=== PATIENT | male | born 1970 | race Caucasian/White ===

== ENCOUNTER 2018-07-10 11:17 | Emergency (ER) | payer BC, OTHER ==
[2018-07-10] MEDS ORDERED: Ibuprofen TAB* 600 MG PO ONE (11:39)
--- NOTE | 2018-07-10 11:40 | ED ---
Back Pain - HPI Summary HPI Summary: The patient is a 48 y/o M presenting to [facility] with a chief complaint of constant bilateral low back pain starting today while at work. 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 Currently, the pain is rated 10/10 in severity. Movement aggravates the pain. He denies numbness in his back. He has had this pain before, and has had an MRI taken many years ago, but he only takes Ibuprofen intermittently for the pain. - History of Current Complaint Chief Complaint: EDBackInjuryPain Stated Complaint: LOWER BACK PAIN Time Seen by Provider: 07/10/18 11:32 Hx Obtained From: Patient Onset/Duration: Sudden Onset, Lasting Minutes - within the last hour, Still Present Onset/Duration: Started Minutes Ago, Still Present Timing: Constant Back Pain Location: Is Discrete @ - left low back Severity Initially: Severe Severity Currently: Severe Pain Intensity: 10 Pain Scale Used: 0-10 Numeric Character: Aching Aggravating Symptom(s): Movement Alleviating Symptom(s): Nothing Associated Signs And Symptoms: Negative: Numbness - Allergies/Home Medications Allergies/Adverse Reactions: Allergies Allergy/AdvReac Type Severity Reaction Status Date / Time Penicillins Allergy Hives Verified 07/10/18 11:29 PMH/Surg Hx/FS Hx/Imm Hx Endocrine/Hematology History: Denies: Hx Diabetes, Hx Thyroid Disease Cardiovascular History: Denies: Hx Hypertension, Hx Pacemaker/ICD Respiratory History: Denies: Hx Asthma, Hx Chronic Obstructive Pulmonary Disease (COPD) GI History: Denies: Hx Ulcer Sensory History: Denies: Hx Hearing Aid Psychiatric History: Denies: Hx Panic Disorder - Surgical History Surgery Procedure, Year, and Place: right knee arthroscopic surgery-2007 & 2013 partial ACL tear; Infectious Disease History: No Infectious Disease History: Denies: Hx Hepatitis, Hx Human Immunodeficiency Virus (HIV), History Other Infectious Disease, Traveled Outside the [place] in Last 30 Days - Family History Known Family History: Negative: Cardiac Disease, Hypertension, Diabetes - Social History Occupation: Employed Full-time Alcohol Use: Occasionally Substance Use Type: Reports: None Smoking Status (MU): Never Smoked Tobacco Review of Systems Positive: Other - bilateral low back pain Negative: Numbness All Other Systems Reviewed And Are Negative: Yes Physical Exam - Summary Physical Exam Summary: Appearance: The patient is well-nourished in no acute distress and in no acute pain. Skin: The skin is warm and dry and skin color reflects adequate perfusion. HEENT: The head is normocephalic and atraumatic. The pupils are equal and reactive. The conjunctivae are clear and without drainage. Nares are patent and without drainage. Mouth reveals moist mucous membranes and the throat is without erythema and exudate. The external ears are intact. The ear canals are patent and without drainage. The tympanic membranes are intact. Neck: The neck is supple with full range of motion and non-tender. There are no carotid bruits. There is no neck vein distension. Respiratory: Chest is non-tender. Lungs are clear to auscultation and breath sounds are symmetrical and equal. Cardiovascular: Heart is regular rate and rhythm. There is no murmur or rub auscultated. There is no peripheral edema and pulses are symmetrical and equal. Abdomen: The abdomen is soft and non-tender. There are normal bowel sounds heard in all four quadrants and there is no organomegaly palpated. Musculoskeletal: There is mild paralumbar tenderness. Straight leg raise at 45 degrees bilaterally. Extremities are non-tender with full range of motion. There is good capillary refill. There is no peripheral edema or calf tenderness elicited. Neurological: Patient is alert and oriented to person, place and time. The patient has symmetrical motor strength in all four extremities. Cranial nerves are grossly intact. Deep tendon reflexes are symmetrical and equal in all four extremities. Psychiatric: The patient has an appropriate affect and does not exhibit any anxiety or depression. Triage Information Reviewed: Yes Vital Signs On Initial Exam: Initial Vitals Temp Pulse Resp BP Pulse Ox 98.2 F 111 20 147/93 99 07/10/18 11:21 07/10/18 11:21 07/10/18 11:21 07/10/18 11:21 07/10/18 11:21 Vital Signs Reviewed: Yes Diagnostics - Vital Signs Vital Signs Temp Pulse Resp BP Pulse Ox 07/10/18 11:21 98.2 F 111 20 147/93 99 - Laboratory Lab Statement: Any lab studies that have been ordered have been reviewed, and results considered in the medical decision making process. Back Pain Course/Dx - Course Course Of Treatment: Mr. Puri presented with what clearly sounded like musculoskeletal back pain after hurting his back during a takedown at work. I recommended NSAID's and daily at bedtime muscle relaxers. - Diagnoses Provider Diagnoses: Low back strain Discharge - Sign-Out/Discharge Documenting (check all that apply): Patient Departure - Patient will be discharged home. - Discharge Plan Condition: Stable Disposition: HOME Prescriptions: LORazepam TAB(*) [Ativan TAB(*)] 1 mg PO BEDTIME PRN #10 tab MDD 1 PRN Reason: Pain Patient Education Materials: Low Back Strain (ED) Forms: *Work Release Referrals: Clemente Vela MD [Primary Care Provider] - 3 Days Additional Instructions: Please take medications as prescribed. Take Ibuprofen as needed. Follow up with your primary care provider in 3 days. Return to the emergency department for any new or worsening symptoms. - Billing Disposition and Condition Condition: STABLE Disposition: Home - Attestation Statements Document Initiated by Momoibe: Yes Documenting Scribe: Deana Kinney Provider For Whom Paulo is Documenting (Include Credential): Dr. Sebastián Mcintosh MD Scribe Attestation: Deana Holder scribed for Dr. Sebastián Mcintosh MD on 07/10/18 at 1834. Scribe Documentation Reviewed: Yes Provider Attestation: The documentation as recorded by the Deana ace accurately reflects the service I personally performed and the decisions made by me, Dr. Sebastián Mcintosh MD Status of Scribelidia Document: Viewed
--- OUTSIDE RECORDS SUMMARY | 2018-07-10 11:44 | XMS REPORT | Continuity of Care Document ---
:1970 External Reference #:[id number] Author Name Lobito Purcell N.P. Address [address] [facility] [address] [place] [address] Care Team Providers Name Role Phone Clemente Vela MD Care Team Information Corrections Specialist Unavailable Clemente Vela MD Primary Care Physician Unavailable Payers Type Date Identification Numbers Payment Provider Subscriber Effective: Policy Number: [id number] [facility] Brett Calvertalystephie Puri 2011 [address] [address] [place] [address] Effective: 2010 Policy Number: [id number] [facility] Ailyn Puri Expires: 2011 Group Name: SEBASTIEN Collins [address] [place] [address] Advance Directives Description No Information Available Problems Date Description Provider Status Onset: Degeneration of lumbar intervertebral disc Jr Green Active Onset: Benign essential hypertension Jr Green Active Onset: Mixed hyperlipidemia Jr GreenP Active Onset: 09/01/2015 Degeneration of lumbar intervertebral disc Jr GreenP Active Onset: 05/12/2015 Essential hypertension Jr Green Active Family History Date Family Member(s) Problem(s) Comments Father 74 Mother 72 Mother Arthritis Children 2 DAUGHTERS Siblings 3 Social History Type Date Description Comments Sex Unknown Marital Status Has been 1 time 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 2019 day Tamsulosin HCL 07/01/ Active Capsules 0.4mg 90caps 1 by mouth N50.811 Dane, 2018 every day Ahtnd Atif M.D. Nortriptyline HCL 07/01/ Active Capsules 75mg 30caps 1 cap by M54.5 Dane, 2018 mouth at [facility] bedtime M.D. No Active 07/01/ Hx Unknown Medications 2017 - 2017 Ciprofloxacin HCL 10/02/ Hx Tablets 500mg 20tabs tab one by J01.80 Dane, 2017 - mouth Ahmad M., 10/13/ twice a M.D. 2016 day Azithromycin 04/17/ Hx Tablets 500mg 5tabs 1 by mouth R07.9 Dane, 2016 - every day Ahmad M., 04/22/ M.D. 2016 Silvadene 02/20/ Hx Cream 1% 50G apply Dane, 2015 - twice a Ahmad M., 08/06/ day to M.D. 2017 affected area --covering with telfa and hood Soma 09/01/ Hx Tablets 350mg 40tabs 1 four Dane, 2016 - times a Ahmad M., 08/06/ day M.D. 2017 Glucosamine 09/01/ Hx Capsules 1500Com 60caps tab one by Dane Chondroitin 1500 2016 - mouth Ahmad M., Complex 08/06/ every in M.D. 2017 the morning and at bedtime Cyclobenzaprine 02/22/ Hx Tablets 10mg 90tabs tab one by M54.5 LESLIE Vela 2014 - mouth Ahmad M., 02/20/ three M.D. 2016 times a day M51.36 Androderm 05/06/2014 - Hx Patches 2mg/24HR 30units apply 257.2 Dane, 01/02/2015 24HR patch qd Ahmad M., after M.D. taking last patch off Oxycodone HCL 05/06/2014 - Hx Tablets 20mg 240tabs tab 1-2 M51.36 [facility] , 06/30/2018 every 6 Ahmamitzy Srivastava, hours as M.D. needed M54.5 Celebrex 01/27/2013 - Hx Capsules 200mg Samples 1 po bid 846.0 [facility], [facility] 2013 Ester Srivastava 719.46 719.41 Ibuprofen 05/26/2012 - Hx Tablets 800mg 90tabs 1 by mouth M54.5 [facility]ane, [facility] 06/30/2018 three times a Porfirio.AtifD. day with food M51.36 Vicodin 10/09/2011 - Hx Tablets 10/325 mg 240tabs 2 four 846.0 Dane, 05/06/2014 times a day Clemente Srivastava, as needed M.D. Fentanyl 10/09/2011 - Hx Patches 72HR 100mcg/HR 15units 1 every 48 719.41 [facility], 01/02/2015 hours Clemente Srivastava M.D. 722.52 Vicodin 10/07/2011 - Hx Tablets 5-500mg 240tabs 2 four times [facility], [facility] 10/09/2011 a day as Prashant Srivastava. needed Flexeril 10/07/2011 - Hx Tablets 10mg 90tabs 1 by mouth [facility], [facility] 01/02/2015 three times Atif SrivastavaDSary a day as needed Fentanyl 10/07/2011 - Hx Patches 72HR 100mcg/HR Patch 1 [facility], [facility] 10/09/2011 every 48 Porfirio. M.D. hours Immunizations CPT Code Status Date Vaccine Lot # [id number] Refused 05/12/2015 Flu Vaccine [id number] Refused 05/06/2014 Flu Vaccine [id number] Refused 2013 Flu Vaccine Vital Signs Date Vital Result Comment 07/01/2018 1:24pm BP Systolic 118 mmHg BP Diastolic 74 mmHg Height 68.5 inches 5'8.50" Weight 191.00 lb BMI (Body Mass Index) 28.6 kg/m2 Heart Rate 87 /min Respiratory Rate 16 /min 04/16/2017 9:04am BP Systolic 122 mmHg BP Diastolic 60 mmHg Weight 192.00 lb Heart Rate 62 /min Respiratory Rate 16 /min 10/02/2016 9:55am BP Systolic 126 mmHg BP Diastolic 82 mmHg Height 68.5 inches 5'8.50" Weight 194.00 lb BMI (Body Mass Index) 29.1 kg/m2 Heart Rate 86 /min Body Temperature 98.1 F Respiratory Rate 18 /min 08/06/2016 9:21am BP Systolic 126 mmHg BP Diastolic 98 mmHg Height 68.5 inches 5'8.50" Weight 195.00 lb BMI (Body Mass Index) 29.2 kg/m2 Heart Rate 76 /min Respiratory Rate 16 /min 04/17/2016 8:24am BP Systolic 132 mmHg BP Diastolic 80 mmHg Height 68.5 inches 5'8.50" Weight 184.00 lb BMI (Body Mass Index) 27.6 kg/m2 Heart Rate 61 /min Respiratory Rate 20 /min 02/21/2016 9:10am BP Systolic 128 mmHg BP Diastolic 74 mmHg Height 68.5 inches 5'8.50" Weight 188.00 lb BMI (Body Mass Index) 28.2 kg/m2 Heart Rate 88 /min Respiratory Rate 20 /min 11/28/2015 10:13am BP Systolic 126 mmHg BP Diastolic 78 mmHg Height 68.5 inches 5'8.50" Weight 195.00 lb BMI (Body Mass Index) 29.2 kg/m2 Heart Rate 76 /min Respiratory Rate 16 /min 09/01/2015 11:21am BP Systolic 122 mmHg BP Diastolic 76 mmHg Height 68.5 inches 5'8.50" Weight 190.00 lb BMI (Body Mass Index) 28.5 kg/m2 Heart Rate 80 /min Respiratory Rate 16 /min 05/12/2015 9:23am BP Systolic 126 mmHg BP Diastolic 78 mmHg Height 68.5 inches 5'8.50" Weight 182.00 lb BMI (Body Mass Index) 27.3 kg/m2 Heart Rate 80 /min Respiratory Rate 16 /min 02/22/2015 3:07pm BP Systolic 132 mmHg BP Diastolic 86 mmHg Height 68.5 inches 5'8.50" Weight 173.00 lb BMI (Body Mass Index) 25.9 kg/m2 Heart Rate 76 /min Respiratory Rate 16 /min 01/02/2015 2:11pm BP Systolic 128 mmHg BP Diastolic 80 mmHg Height 68.5 inches 5'8.50" Weight 175.00 lb BMI (Body Mass Index) 26.2 kg/m2 Heart Rate 60 /min Respiratory Rate 16 /min 09/29/2014 10:37am BP Systolic 126 mmHg BP Diastolic 72 mmHg Height 69 inches 5'9" Weight 189.00 lb BMI (Body Mass Index) 27.9 kg/m2 Heart Rate 72 /min Respiratory Rate 12 /min 05/06/2014 9:53am BP Systolic 136 mmHg BP Diastolic 88 mmHg Height 69 inches 5'9" Weight 184.00 lb BMI (Body Mass Index) 27.2 kg/m2 Heart Rate 80 /min Respiratory Rate 20 /min 2013 11:07am BP Systolic 26390 mmHg Height 69 inches 5'9" Weight 180.00 lb BMI (Body Mass Index) 26.6 kg/m2 Heart Rate 80 /min Respiratory Rate 16 /min 01/27/2013 10:10am BP Systolic 135 mmHg BP Diastolic 80 mmHg Height 69 inches 5'9" Weight 182.00 lb BMI (Body Mass Index) 26.9 kg/m2 Heart Rate 75 /min Respiratory Rate 18 /min 08/18/2012 10:30am BP Systolic 126 mmHg BP Diastolic 80 mmHg Height 69 inches 5'9" Weight 180.00 lb BMI (Body Mass Index) 26.6 kg/m2 Heart Rate 76 /min Respiratory Rate 16 /min 05/26/2012 9:37am BP Systolic 132 mmHg BP Diastolic 76 mmHg Height 69 inches 5'9" Weight 174.00 lb BMI (Body Mass Index) 25.7 kg/m2 Heart Rate 74 /min Respiratory Rate 16 /min 01/23/2012 11:20am BP Systolic 124 mmHg BP Diastolic 80 mmHg Height 69 inches 5'9" Weight 179.00 lb BMI (Body Mass Index) 26.4 kg/m2 Heart Rate 64 /min Respiratory Rate 16 /min 10/09/2011 3:37pm BP Systolic 136 mmHg BP Diastolic 84 mmHg Height 69 inches 5'9" Weight 175.00 lb BMI (Body Mass Index) 25.8 kg/m2 Heart Rate 88 /min Last Menstrual Period 0 Respiratory Rate 14 /min Results Test Date Facility Test Result H/L Range Note Laboratory test 01/02/2015 [facility] 25 Hydroxy 27 ng/mL Low (31-100) 1 finding [facility] Vit D @ (075)- - Testosterone,Total @ 199 ng/dL (175-781) 2 Lipid 01/02/2015 [facility] Cholesterol @ 245 mg/dL High (0-200) [facility] (607)- - Triglyceride @ 261 mg/dL High (30-200) HDL Cholesterol @ 45 mg/dL (>40) 3 Chol/HDL Ratio 5.4 RATIO 4 LDL Chol (Calc) 148 mg/dL High (<130) 5 Hemoglobin A1c 01/02/2015 [facility] Hemoglobin A1c @ 5.6 % (4.0-6.0) [facility] (607)- - Est Average Glucose 114 mg/dL 6 Laboratory 01/02/2015 [facility] TSH,Ultrasensitive @ 1.700 (0.360- 4.170) test finding [facility] mIU/L (607)- - CBC With Diff 01/02/2015 [facility] WBC 9.1 (4.1-11.0) [facility] 10*3/uL (607)- - RBC 4.94 10*6/uL (4.60-6.10) HGB 15.0 g/dL (13.5-18.0) HCT 44.3 % (41.0-53.0) MCV 89.8 fL (80.0-95.0) MCH 30.4 pg (27.0-32.0) MCHC 33.8 g/dL (32.0-36.0) RDW 13.9 % (10.5-14.5) PLT 319 10*3/uL (150-450) MPV 8.3 fL (7.1-10.7) Neut % 66.9 % (35.0-75.0) Lymph % 26.4 % (16.0-52.0) Archer % 5.5 % (0.0-8.0) Eos % 0.8 % (0.0-5.0) Baso % 0.4 % (0.0-4.0) Neut # 6.1 10*3/uL (1.8-7.7) Lymph # 2.4 10*3/uL (1.2-4.8) Archer # 0.5 10*3/uL (0.0-0.8) Eos # 0.1 10*3/uL (0.0-0.5) Baso # 0.0 10*3/uL (0.0-0.2) CMP 01/02/2015 [facility] Sodium 139 mmol/L (136-145) [facility] (607)- - Potassium 3.9 mmol/L (3.6-5.2) Chloride 101 mmol/L (100-108) Co2 27 mmol/L (22-31) Anion Gap 11 mmol/L (7-16) Urea Nitrogen 12 mg/dL (7-24) Creatinine 0.9 mg/dL (0.8-1.3) BUN/Creat Ratio 13.3 RATIO (10.0-20.0) Glucose 126 mg/dL High (70-99) Calcium 9.9 mg/dL (8.4-10.2) Total Protein 7.4 g/dL (6.4-8.2) Albumin 4.3 g/dL (3.5-4.6) Globulin 3.1 g/dL (2.7-4.3) Alb/Glob Ratio 1.4 RATIO Alkaline Phosphatase 83 U/L (45-117) Bilirubin,Total 0.5 mg/dL (0.0-1.0) Ast (Sgot) 22 U/L (11-39) Alt (SGPT) 51 U/L (12-78) GFR >90 ml/min/1.73m2 (>59) GFR ( Amer) >90 ml/min/1.73m2 (>59) GFR Interpretation <SEE NOTE> 7 CBC W/Automated Diff 05/06/2014 [facility] White Blood Count 5.8 K/uL 3.4- 10.5 Red Blood Count 4.96 M/uL 4.20-5.80 Hemoglobin 15.5 gm/dL 12.8-17.0 Hematocrit 44.5 % 38.0-48.0 Mean Cell Volume 89.7 fl 80.0-96.0 Mean Corpuscular HGB 31.3 pg 27.0-33.0 Mean Corpuscular HGB Conc 34.8 g/dL 31.7-36.0 Platelet Count 286 K/uL 150-400 Red Cell Distri Width SD 40.9 fl 36-51 Red Cell Distri Width %CV 12.6 % 11.6-15.8 Mean Platelet Volume 10.4 fL 6.6-10.6 Neut% 57.6 % 33.0-73.0 Lymph % 32.4 % 17.0-56.0 Archer % 9.1 % 0.0-10.0 Eo% 0.7 % 0.0-5.0 Bas% 0.2 % 0.1-1.0 Neut# 3.35 K/uL 1.8-7.0 Lymph # 1.88 K/uL 1.2-4.0 Archer # 0.53 K/uL 0.0-0.6 Eos # 0.04 K/uL 0.0-0.5 Baso # 0.01 K/uL Low 0.1-0.2 Comprehensive Metabolic Panel 05/06/2014 [facility] Glucose 93 mg/dL 74- 106 BUN 12 mg/dL 7-18 Creatinine 0.8 mg/dL 0.6-1.3 Glom Filtration Rate, Estimate >60 mL/min >60 If >60 mL/min >60 8 BUN/Creat 15.0 ratio Sodium 137 mmol/L 136-145 Potassium 4.2 mmol/L 3.5-5.1 Chloride 102 mmol/L 98-107 Carbon Dioxide 27 mmol/L 21-32 Anion Gap 12 mEq/L 8-16 Calcium 9.6 mg/dL 8.5-10.1 Total Protein 7.7 g/dL 6.4-8.2 Albumin 4.5 g/dL 3.4-5.0 Globulin 3.2 g/dL 1.9-4.3 Alb/Glob 1.4 ratio Bilirubin,Total 0.7 mg/dL 0.2-1.0 Sgot/Ast 17 U/L 15-37 SGPT/Alt 49 U/L 12-78 Alkaline Phosphatase 67 U/L 45-117 Laboratory test 05/06/2014 [facility] Thyroid Stim Hormone 2.55 uIU/mL 0.36-3.74 finding Glycohemoglobin A1c 05/06/2014 [facility] Glycohemoglobin 5.2 % 4.2-6.3 9 (A1c) eAG 103 mg/dL LDL Cholesterol Profile 05/06/2014 [facility] Cholesterol 262 mg/dL 10 Triglycerides 205 mg/dL 11 HDL Cholesterol 39 mg/dL 12 LDL-Cholesterol 182 mg/dL 13 Testosterone,Free/Weakly 05/06/2014 [facility] Testosterone,Serum 393 348- 1197 Bound ng/dL Testosterone,%Free/Weakly BND 38.2 % 9.0-46.0 Testosterone,Free+Weakly Bound 150.1 ng/dL 40.0-250.0 14 Laboratory test finding 05/06/2014 [facility] Comment See Note 15 LDL Cholesterol Profile 2013 [facility] Cholesterol 237 mg/dL High 120-200 Triglycerides 175 mg/dL 16-231 HDL Cholesterol 45 mg/dL 29-83 LDL-Cholesterol 157 mg/dL 62-185 Comprehensive Metabolic Panel 2013 [facility] Glucose 82 mg/dL 76- 115 BUN 11 mg/dL 5-23 Creatinine 0.8 mg/dL 0.5-1.4 Glom Filtration Rate, Estimate >60 mL/min >60 If >60 mL/min >60 16 BUN/Creat 13.7 ratio Sodium 139 mmol/L 136-145 Potassium 4.1 mmol/L 3.5-5.1 Chloride 105 mmol/L 98-107 Carbon Dioxide 28 mEq/L 18-29 Anion Gap 10 mEq/L 8-16 Calcium 9.4 mg/dL 8.5-10.1 Total Protein 7.5 g/dL 6.3-8.0 Albumin 4.5 g/dL 3.5-5.0 Globulin 3.0 g/dL 1.9-4.3 Alb/Glob 1.5 ratio Bilirubin,Total 0.5 mg/dL 0.2-1.2 Sgot/Ast 18 U/L 16-40 SGPT/Alt 45 U/L 30-65 Alkaline Phosphatase 77 U/L 50-136 Glycohemoglobin A1c 2013 [facility] Glycohemoglobin (A1c) 5.1 % 4.8- 6.0 17 eAG 100 mg/dL Laboratory test 2013 [facility] Thyroid Stim 1.85 uIU/mL 0.49-4.67 finding Hormone CBC W/Automated Diff 2013 [facility] White Blood Count 6.5 K/uL 3.4- 10.5 Red Blood Count 4.85 M/uL 4.20-5.80 Hemoglobin 15.1 gm/dL 12.8-17.0 Hematocrit 44.1 % 38.0-48.0 Mean Cell Volume 90.9 fl 80.0-96.0 Mean Corpuscular HGB 31.1 pg 27.0-33.0 Mean Corpuscular HGB Conc 34.2 g/dL 31.7-36.0 Platelet Count 297 K/uL 150-400 Red Cell Distri Width SD 42.9 fl 36-51 Red Cell Distri Width %CV 13.3 % 11.6-15.8 Mean Platelet Volume 10.5 fL 6.6-10.6 Neut% 60.9 % 33.0-73.0 Lymph % 27.5 % 17.0-56.0 Archer % 10.2 % High 0.0-10.0 Eo% 1.2 % 0.0-5.0 Bas% 0.2 % 0.1-1.0 Neut# 3.95 K/uL 1.8-7.0 Lymph # 1.78 K/uL 1.2-4.0 Archer # 0.66 K/uL High 0.0-0.6 Eos # 0.08 K/uL 0.0-0.5 Baso # 0.01 K/uL Low 0.1-0.2 Laboratory test 2013 [facility] Testosterone,Serum 282 ng/dL Low 348- 1197 18 finding 1 A REVIEW OF THE LITERATURE SUGGESTS THE FOLLOWING RANGES FOR THE CLASSIFICATION OF 25-OH VITAMIN D STATUS: VITAMIN D STATUS 25-OH VITAMIN D DEFICIENCY <20 NG/ML INSUFFICIENCY 20-30 NG/ML SUFFICIENCY 31 - 100 NG/ML TOXICITY > 100 NG/ML A PEDIATRIC REFERENCE RANGE HAS NOT BEEN ESTABLISHED USING THIS METHOD. 2 PLEASE NOTE: REFERENCE RANGE IS GENDER SPECIFIC FOR ADULTS ONLY. AGE/MEÑO STAGE APPROPRIATE REFERENCE RANGES HAVE NOT BEEN ESTABLISHED FOR THIS METHODOLOGY. 3 PER NCEP ATP III GUIDELINES: RESULTS LOWER THAN 40 MG/DL ARE SUGGESTIVE OF INCREASED RISK FOR CORONARY ARTERY DISEASE. RESULTS > OR=TO 60 MG/DL ARE CONSIDERED A NEGATIVE RISK FACTOR. 4 INTERPRETATION OF CHOL-HDL RATIO CHD RISK FEMALE MALE VERY HIGH >8.3 >14.3 HIGH 5.6- 8.3 6.7- 14.3 AVERAGE 3.7- 5.6 4.0- 6.7 BELOW AVERAGE 2.5- 3.7 2.7- 4.0 PROTECTED <2.5 <2.7 5 PER NCEP ATP III GUIDELINES: OPTIMAL < 100 NEAR OPTIMAL 100 - 129 BORDERLINE HIGH 130 - 159 HIGH 160 - 189 VERY HIGH > 189 6 HEMOGLOBIN A1c INTERPRETATION: 4.0-6.0% GOOD GLYCEMIC CONTROL 6.1-6.5% AT RISK FOR HYPERGLYCEMIA >6.5% DIABETIC/ POOR GLYCEMIC CONTROL REFERENCE: DIABETES CARE 32(7), 2008 IF A1c RESULT IS INCONSISTENT WITH CLINICAL ESTIMATES OF GLYCEMIC CONTROL, AN INTERFERING Hb VARIANT SHOULD BE CONSIDERED. 7 NORMAL KIDNEY FUNCTION OR MILD DISEASE - GFR >OR=60 CHRONIC KIDNEY DISEASE - GFR 15 - 59 RENAL FAILURE - GFR <15 Est. GFR calculation based on the MDRD study equation, which assumes a steady state for creatinine. Est. GFR should not be used for medication dosing. 8 Note: Persistent reduction for 3 months or more in an eGFR <60 mL/min/1.73 m2 defines CKD. Patients with eGFR values >/=60 mL/min/1.73 m2 may also have CKD if evidence of persistent proteinuria is present. The original MDRD equation for estimated GFR is not valid for patients less than 18 years of age. Additional information may be found at www.kdoqi.org. 9 Elevated levels of HbA1c suggest the need for more aggressive treatment of glycemia. The [place] [employer] recommends that a primary goal of therapy should be a HbA1c of <7% and that physicians should re-evaluate the treatment regimen in patients with HbA1c values consistently >8%. 10 Reference Guidelines*: Desirable: ........... < 200 mg/dL Borderline High: ..... 200-239 mg/dL High: ................ >=240 mg/dL * The National Cholesterol Education Program (NCEP) 11 Reference Guidelines*: Normal: ............. < 150 mg/dL Borderline High: .... 150-199 mg/dL High: ............... 200-499 mg/dL Very High: .......... > 500 mg/dL * Source: National Cholesterol Education Program (NCEP) 12 Reference Guidelines*: Low HDL: ..... < 40 mg/dL Normal: ..... 40-60 mg/dL Desirable: ... > 60 mg/dL *The National Cholesterol Education Program(NCEP) 13 Reference Guidelines*: Optimal:........... <100 mg/dL Near Optimal....... 100-129 mg/dL Borderline High.... 130-159 mg/dL High............... 160-189 mg/dL Very High.......... >=190 mg/dL * Source: National Cholesterol Education Program (NCEP) 14 Performed at: RN - [facility] [address] [id number] Clamp Forklift Operator: Yolis Madrigal MD, Phone: [phone] Performed at: - [facility] [address] [id number] Clamp Forklift Operator: Lobito Blackman MD, Phone: [phone] 15 Adult male reference interval is based on a population of lean males up to 40 years old. 16 Note: Persistent reduction for 3 months or more in an eGFR <60 mL/min/1.73 m2 defines CKD. Patients with eGFR values >/=60 mL/min/1.73 m2 may also have CKD if evidence of persistent proteinuria is present. The original MDRD equation for estimated GFR is not valid for patients less than 18 years of age. Additional information may be found at www.kdoqi.org. 17 A1c value between 5.7% and 6.4% is considered at increased risk for diabetes. A1c value greater than 6.5 % is considered essentially diagnostic for Type II diabetes. Current guidelines recommend a treatment goal of <7% for diabetic patients. This method will measure glycosylated hemoglobin variants, HbS, HbG, HbH, HbWayne, HbC, HbE, etc. Other hemoglobin- opathies may give incorrect results with this test. 18 Performed at: RN - [facility] [address] [id number] Clamp Forklift Operator: Yolis Madrigal MD, Phone: [phone] Procedures Date Code Description Status 01/02/2015 01099 Visual Screening Test Completed 06/23/2009 91292 Tympanometry Completed 05/22/2006 15903 Tympanometry Completed Encounters Type Date Location Provider Dx Diagnosis Office Visit 07/01/2018 [facility] Lobito Purcell M51.36 Other intervertebral 1:30p N.P. disc degeneration, lumbar region I10 Essential (primary) hypertension M25.561 Pain in right knee E78.2 Mixed hyperlipidemia M25.511 Pain in right shoulder M54.5 Low back pain R10.84 Generalized abdominal pain N50.811 Right testicular pain Office Visit 04/16/2017 9:00a [facility] Norma Jr M51.36 Other intervertebral DREDGE LEVER OPERATOR disc degeneration, lumbar region I10 Essential (primary) hypertension M25.561 Pain in right knee Office Visit 10/02/2016 10:00a [facility] Norma Jr J01.80 Other acute DREDGE LEVER OPERATOR sinusitis R05 Cough R50.9 Fever, unspecified M51.36 Other intervertebral disc degeneration, lumbar region Office Visit 08/06/2016 9:15a [facility] Norma Jr DREDGE LEVER OPERATOR M51.36 Other intervertebral disc degeneration, lumbar region M25.561 Pain in right knee I10 Essential (primary) hypertension E78.2 Mixed hyperlipidemia M25.511 Pain in right shoulder Office Visit 04/17/2016 8:30a [facility] Clemente Vela R07.9 Chest pain , M., M.D. unspecified R06.02 Shortness of breath R05 Cough J20.9 Acute bronchitis, unspecified M51.36 Other intervertebral disc degeneration, lumbar region M25.561 Pain in right knee I10 Essential (primary) hypertension E78.2 Mixed hyperlipidemia L20.9 Atopic dermatitis, unspecified J30.9 Allergic rhinitis, unspecified Office Visit 02/21/2016 9:15a [facility] Norma Jr M51.36 Other intervertebral DREDGE LEVER OPERATOR disc degeneration, lumbar region M54.5 Low back pain M25.561 Pain in right knee I10 Essential (primary) hypertension E78.2 Mixed hyperlipidemia Office Visit 11/28/2015 10:15a Jr Molina DREDGE LEVER OPERATOR M51.36 Other intervertebral disc degeneration, lumbar region M54.5 Low back pain M25.561 Pain in right knee I10 Essential (primary) hypertension Office Visit 09/01/2015 11:15a Jr Molina DREDGE LEVER OPERATOR M51.36 Other intervertebral disc degeneration, lumbar region M54.5 Low back pain M25.561 Pain in right knee I10 Essential (primary) hypertension E78.2 Mixed hyperlipidemia Office Visit 05/12/2015 9:30a Jr Molina DREDGE LEVER OPERATOR M51.36 Other intervertebral disc degeneration, lumbar region M54.5 Low back pain M25.561 Pain in right knee Office Visit 02/22/2015 3:00p [facility] Jr Green 722.52 Intervertebral Disc DREDGE LEVER OPERATOR Degeneration Lumbar 724.2 Lumbago 401.1 Hypertension Benign 272.2 Hyperlipidemia Mixed Office Visit 01/02/2015 1:45p Jr MolinaP V70.0 Examination General Medical Routine AT Health Care Facility V72.62 Laboratory Exam Ordered as Part Of Routine General Med Exam 401.1 Hypertension Benign 272.2 Hyperlipidemia Mixed 257.2 Testicular Hypofunction Other 722.52 Intervertebral Disc Degeneration Lumbar Office Visit 09/29/2014 10:30a Jr Molina DREDGE LEVER OPERATOR 401.1 Hypertension Benign 722.52 Intervertebral Disc Degeneration Lumbar 846.0 Sprains & Strains Sacroiliac Region Lumbosacral (Joint)(Liga 719.41 Pain Joint Shoulder Region 723.1 Cervicalgia Office Visit 05/06/2014 9:45a Jr Molina DREDGE LEVER OPERATOR 780.79 Malaise And Fatigue Other 401.1 Hypertension Benign 722.52 Intervertebral Disc Degeneration Lumbar 846.0 Sprains & Strains Sacroiliac Region Lumbosacral (Joint)(Liga 719.41 Pain Joint Shoulder Region 723.1 Cervicalgia 719.46 Pain Joint Lower Leg 257.2 Testicular Hypofunction Other Office Visit 2013 11:00a Jr Molina DREDGE LEVER OPERATOR 780.79 Malaise And Fatigue Other 401.1 Hypertension Benign 722.52 Intervertebral Disc Degeneration Lumbar 846.0 Sprains & Strains Sacroiliac Region Lumbosacral (Joint)(Liga 724.2 Lumbago 719.41 Pain Joint Shoulder Region Office Visit 01/27/2013 10:15a [facility] Jr Green DREDGE LEVER OPERATOR 719.46 Pain Joint Lower Leg 722.52 Intervertebral Disc Degeneration Lumbar 846.0 Sprains & Strains Sacroiliac Region Lumbosacral (Joint)(Liga 719.41 Pain Joint Shoulder Region Office Visit 08/18/2012 10:30a Jr Molina DREDGE LEVER OPERATOR 719.46 Pain Joint Lower Leg Office Visit 05/26/2012 9:30a Jr Molina DREDGE LEVER OPERATOR 722.52 Intervertebral Disc Degeneration Lumbar 846.0 Sprains & Strains Sacroiliac Region Lumbosacral (Joint)(Liga 719.41 Pain Joint Shoulder Region 724.2 Lumbago 401.1 Hypertension Benign V64.06 Vaccination Not Carried Out Because Of Patient Refusal Office Visit 01/23/2012 11:30a Jr Molina 722.52 Intervertebral Disc Degeneration Lumbar 846.0 Sprains & Strains Sacroiliac Region Lumbosacral (Joint)(Liga 719.41 Pain Joint Shoulder Region Office Visit 10/09/2011 3:30p [facility] Norma Jr 722.52 Intervertebral Disc DREDGE LEVER OPERATOR Degeneration Lumbar 846.0 Sprains & Strains Sacroiliac Region Lumbosacral (Joint)(Liga 724.2 Lumbago Office Visit 05/29/2011 10:30a [facility] Jr Green 722.52 Intervertebral Disc DREDGE LEVER OPERATOR Degeneration Lumbar Office Visit 05/07/2010 12:00p [facility] Clemente Vela 789.07 Pain Abdominal M., M.D. Generalized 780.79 Malaise And Fatigue Other Office Visit 02/13/2010 11:15a [facility] Clemente Vela 722.52 Intervertebral Disc M., M.D. Degeneration Lumbar 780.79 Malaise And Fatigue Other 724.2 Lumbago 300.00 Anxiety State Unspec Office Visit 01/29/2010 9:30a [facility] Jr Green 722.51 Intervertebral Disc DREDGE LEVER OPERATOR Degeneration Thoracic Office Visit 01/23/2010 1:30p [facility] Jr Green 722.52 Intervertebral Disc DREDGE LEVER OPERATOR Degeneration Lumbar Office Visit 09/05/2009 4:45p [facility] Clemente Vela 722.52 Intervertebral Disc Ester Srivastava Degeneration Lumbar 782.3 Edema 682.3 Cellulitis & Abscess Upper Arm & Forearm 729.5 Pain In Limb Office Visit 01/04/2009 11:15a [facility] Clemente Vela 722.52 Intervertebral Disc Ester Srivastava Degeneration Lumbar 846.0 Sprains & Strains Sacroiliac Region Lumbosacral (Joint)(Liga 300.00 Anxiety State Unspec Plan of Treatment 07/01/2018 - [facility] Salas.[id number] Other intervertebral disc degeneration, lumbar regionComments:EXERCISE/HEAT /MESSAGEAVOID HEAVY LIFTING WT LOSSTYLENOL OR MOTRIN PRNI10 Essential (primary) hypertensionComments:DIET CONTROLLED ;CUT OUT SALTCOUNSELING ON DX AND SKILLED NURSING CARE AND COMPLICATIONS LOW SODIUM DIET CHECK BP TIWM25.561 Pain in right kneeComments:SEES DR HU--HAD CORTISONE INJE78.2 Mixed hyperlipidemiaComments:DIET REVIEWED CONTINUE DIETWT LOSSF/U LAB FBWM25.511 Pain in right shoulderComments:EXERCISE/HEAT /MESSAGE AVOID HEAVY LIFTINGTYLENOL OR MOTRIN PRNM54.5 Low back painNew Medication:Nortriptyline HCL 75 mg - 1 cap by mouth at bedtimeComments:EXERCISE/HEAT /MESSAGEAVOID HEAVY LIFTING WT LOSSTYLENOL OR MOTRIN PRNR10.84 Generalized abdominal painComments: TYLENOL OR MOTRIN PRNINCREASE PO FLUIDLAXATIVE PRN F/U DIRECTEDF/U DIRECTED KEEP APPTS FOR DIAGNOSTIC TESTING [id number] Right testicular painNew Medication:Ciprofloxacin HCL 500 mg - 1 tab by mouth twice a dayTamsulosin HCL 0.4 mg - 1 by mouth every dayComments:OBSERVE
[2018-07-10 11:55] VITALS: BP 0/0
== END 2018-07-10 11:54 | disposition home or self-care (01) ==
LOC: ED 11:17
DX: S39.012A Strain of muscle, fascia and tendon of lower back, initial encounter (principal); M54.5 Low back pain; X50.9XXA Other and unspecified overexertion or strenuous movements or postures, initial encounter; Y92.9 Unspecified place or not applicable
CPT/HCPCS: 99282; A9270-GY